=== PATIENT | male | born 2005 | race Two or more races ===

== ENCOUNTER 2023-06-11 22:08 | Emergency (ER) | payer OTHER ==
[~2023-06-11] VITALS: Ht 170.2 cm; Wt 70.0 kg
[2023-06-11 22:15] VITALS: TEMP 99
[2023-06-11 22:27] LABS: COVID AG,FIA SOURCE NASAL SWAB
[2023-06-11 23:11] LABS: INFLUENZA TYPE A NEGATIVE FOR TYPE A (NEGATIVE); INFLUENZA TYPE B NEGATIVE FOR TYPE B (NEGATIVE); SARS-COV2 (COVID) ANTIGEN,FIA Negative (Negative)
[2023-06-11] MEDS ORDERED: AZIT250T9 PO (23:26)
[2023-06-11 23:42] VITALS: BP 133/65; PULSE 87; RESP 18
== END 2023-06-11 23:43 | disposition home or self-care (01) ==
LOC: EMS 22:11
DX: J03.90 Acute tonsillitis, unspecified (principal); F12.90 Cannabis use, unspecified, uncomplicated; Z20.822 Contact with and (suspected) exposure to COVID-19
CPT/HCPCS: 87804; 99283